=== PATIENT | male | born 1995 | race Caucasian/White ===

== ENCOUNTER 2017-05-28 18:15 | Emergency (ER) | payer OTHER ==
[~2017-05-28] VITALS: Ht 180.3 cm; Wt 79.4 kg
== END 2017-05-28 21:49 | disposition home or self-care (01) ==
LOC: ER 18:15
DX: S11.82XA Laceration with foreign body of other specified part of neck, initial encounter (principal); W18.39XA Other fall on same level, initial encounter; Y93.89 Activity, other specified; Y92.69 Other specified industrial and construction area as the place of occurrence of the external cause; Y99.8 Other external cause status